=== PATIENT | female | born 1950 | race Caucasian/White ===

== ENCOUNTER 2016-07-21 11:54 | Inpatient (IN) | payer BC ==
[~2016-07-21] VITALS: Ht 162.6 cm; Wt 89.8 kg
[2016-07-21] MEDS ORDERED: IV NORMAL SALINE 1000ML BAG 1,000 ML IV SCH (12:12)
[2016-07-21] MEDS ORDERED: ONDANSETRON PF 4 MG/2 ML VIAL. IV ONE (12:15)
[2016-07-21] MEDS ORDERED: ASPIRIN ENTERIC COATED 325 MG TABLET.DR. PO ONE (12:15)
[2016-07-21] MEDS ORDERED: 0.9 % SODIUM CHLORIDE 10 ML DISP.SYRIN. IV PRN (12:15)
--- NOTE | 2016-07-21 12:26 | PHYS DOC ---
Past Medical History Past Medical History: Cancer, CVA, High Cholesterol, Hypertension, Stroke Additional Past Medical Histor: ADHD, paresthesias peripherally Past Surgical History: Cholecystectomy, Hysterectomy, Splenectomy, Other Additional Past Surgical Histo: HERNIAS Alcohol Use: None Adult General Chief Complaint Chief Complaint: NEAR SYNCOPE HPI HPI This is a pleasant 66-year-old female with history of hypertension, hyperlipidemia, prior CVA hemorrhagicum 2000 who presents with sudden onset of syncope. Patient has been evaluated by neurology in the past but comes today plus because she syncopized work. Patient had a prodrome of dizziness diaphoresis nausea prior to the event. She denied any headache chest pain prior to the event. She did have a crampy nauseous pain in the middle of her abdomen and abdominal pain without radiation to her back or flanks before the event became. Patient denies any fevers, chills, cough, runny nose, URI symptoms, lower leg pain, shortness of breath with the event. She does admit to having some tingling around perioral numbness as well as bilateral hands bilateral feet with no carpal pedal spasms. Patient has had events like this in the past this was a little more severe than she prior expense. She normally gets her care at another hospital facility since she new to us. Review of Systems Review of Systems Constitutional: Denies fever or chills planes of diaphoresis Eyes: Added she had tunnel vision without loss of vision she denies redness, or eye pain [] HENT: Denies nasal congestion or sore throat [] Respiratory: Denies cough or shortness of breath [] Cardiovascular: No additional information not addressed in HPI [] GI: He did complain of some abdominal pain nausea without vomiting or diarrhea. : Denies dysuria or hematuria [] Musculoskeletal: Denies back pain or joint pain [] Integument: Denies rash or skin lesions [] Neurologic: Denies headache, focal weakness or sensory changes [] Endocrine: Denies polyuria or polydipsia [] Current Medications Current Medications Current Medications Medications (Trade) Dose Ordered Sig/Leilani Start Time Stop Time Status Last Admin Dose Admin Aspirin (Ecotrin) 325 mg 1X ONCE 07/21/16 12:15 07/21/16 12:18 DC 07/21/16 12:32 325 MG Ondansetron HCl (Zofran) 4 mg 1X ONCE 07/21/16 12:15 07/21/16 12:18 DC 07/21/16 12:32 4 MG Sodium Chloride 1,000 ml @ 1,000 mls/hr Q1H 07/21/16 12:12 07/21/16 13:11 DC 07/21/16 12:32 1,000 MLS/HR Sodium Chloride (Normal Saline Flush) 10 ml QSHIFT PRN 07/21/16 12:15 Allergies Allergies Allergies Coded Allergies Type Severity Reaction Last Updated Verified cefaclor Allergy Intermediate hives 07/21/16 Yes Physical Exam Physical Exam Constitutional: Well developed, well nourished, uncomfortable but nontoxic patient is pale but nondiaphoretic HENT: Normocephalic, atraumatic, mucous membranes no carotid bruits no JVD noted no oral exudates, nose normal. [] Eyes: PERRLA, EOMI, conjunctiva normal, no discharge. [] Neck: Normal range of motion, no tenderness, supple, no stridor. [] Cardiovascular:Heart rate regular rhythm, no murmur [] Lungs & Thorax: Bilateral breath sounds clear to auscultation [] Abdomen: Bowel sounds normal, soft, no tenderness, no masses, no pulsatile masses no guarding rebound or organomegaly Skin: Warm, dry, no erythema, no rash. No diaphoresis skin warm capillary refill plus to +2 peripheral pulses at the radial and dorsalis pedis. His femoral pulse. Back: No tenderness, no CVA tenderness. [] Extremities: No tenderness, no cyanosis, no clubbing, ROM intact, no edema. [] Neurologic: Alert and oriented X 3, normal motor function, normal sensory function, no focal deficits noted. No change from baseline. Cranial nerves II through XII are intact Psychologic: Affect normal, judgement normal, mood normal. [] Current Patient Data Vital Signs Vital Signs Date Time Temp Pulse Resp B/P (MAP) Pulse Ox O2 Delivery O2 Flow Rate FiO2 07/21/16 13:24 70 147/60 (89) 92 Room Air 07/21/16 11:54 97.8 15 97.8 Lab Values Laboratory Tests Test 07/21/16 12:24 07/21/16 13:20 White Blood Count 7.6 x10^3/uL (4.0-11.0) Red Blood Count 4.06 x10^6/uL (3.50-5.40) Hemoglobin 12.5 g/dL (12.0-15.5) Hematocrit 35.5 % (36.0-47.0) L Mean Corpuscular Volume 88 fL (79-100) Mean Corpuscular Hemoglobin 31 pg (25-35) Mean Corpuscular Hemoglobin Concent 35 g/dL (31-37) Red Cell Distribution Width 13.9 % (11.5-14.5) Platelet Count 351 x10^3/uL (140-400) Neutrophils (%) (Auto) 69 % (31-73) Lymphocytes (%) (Auto) 21 % (24-48) L Monocytes (%) (Auto) 8 % (0-9) Eosinophils (%) (Auto) 1 % (0-3) Basophils (%) (Auto) 1 % (0-3) Neutrophils # (Auto) 5.2 x10^3uL (1.8-7.7) Lymphocytes # (Auto) 1.6 x10^3/uL (1.0-4.8) Monocytes # (Auto) 0.6 x10^3/uL (0.0-1.1) Eosinophils # (Auto) 0.1 x10^3/uL (0.0-0.7) Basophils # (Auto) 0.1 x10^3/uL (0.0-0.2) D-Dimer (Pat) 1.80 ug/mlFEU (0.00-0.50) H Sodium Level 141 mmol/L (136-145) Potassium Level 3.4 mmol/L (3.5-5.1) L Chloride Level 106 mmol/L (98-107) Carbon Dioxide Level 29 mmol/L (21-32) Anion Gap 6 (6-14) Blood Urea Nitrogen 12 mg/dL (7-20) Creatinine 0.7 mg/dL (0.6-1.0) Estimated GFR (Cockcroft-Gault) 83.2 BUN/Creatinine Ratio 17 (6-20) Glucose Level 127 mg/dL (70-99) H Calcium Level 8.3 mg/dL (8.5-10.1) L Magnesium Level 2.0 mg/dL (1.8-2.4) Total Bilirubin 0.4 mg/dL (0.2-1.0) Aspartate Amino Transferase (AST) 20 U/L (15-37) Alanine Aminotransferase (ALT) 18 U/L (14-59) Alkaline Phosphatase 55 U/L (46-116) Creatine Kinase 63 U/L (26-192) Creatine Kinase MB (Mass) < 0.5 ng/mL (0.0-3.6) Creatine Kinase MB Relative Index % (0-4) Troponin I Quantitative < 0.017 ng/mL (0.000-0.055) DG-Jti-J-Type Natriuretic Peptide 104 pg/mL (0-124) Total Protein 5.9 g/dL (6.4-8.2) L Albumin 2.8 g/dL (3.4-5.0) L Albumin/Globulin Ratio 0.9 (1.0-1.7) L Lipase 71 U/L (73-393) L Thyroid Stimulating Hormone (TSH) 1.813 uIU/mL (0.358-3.74) Urine Collection Type Unknown Urine Color Yellow Urine Clarity Clear Urine pH 7.0 Urine Specific [place] <=1.005 Urine Protein Negative mg/dL (NEG-TRACE) Urine Glucose (UA) Negative mg/dL (NEG) Urine Ketones (Stick) Negative mg/dL (NEG) Urine Blood Negative (NEG) Urine Nitrite Negative (NEG) Urine Bilirubin Negative (NEG) Urine Urobilinogen Dipstick 1.0 mg/dL (0.2 mg/dL) Urine Leukocyte Esterase Negative (NEG) Urine RBC 0 /HPF (0-2) Urine WBC 0 /HPF (0-4) Urine Bacteria 0 /HPF (0-FEW) Urine Hyaline Casts Moderate /HPF Urine Mucus Slight /LPF Laboratory Tests 07/21/16 12:24 Laboratory Tests 07/21/16 12:24 EKG EKG [] Radiology/Procedures Radiology/Procedures [] IMAGING REPORT Signed PATIENT: MARCIAL VALENCIA ACCOUNT: [id number] : 1950 LOCATION: ER AGE: 66 SEX: F EXAM STATUS: PRE ER ORD. PHYSICIAN: SHAUNA DASH MD REASON: syncope PROCEDURE: CT HEAD WO CONTRAST Exam performed: CT scan of the head without contrast. Date of Service: 07/21/14 Comparison: None available. Clinical History: Syncope. Technique: Helical acquisitions are obtained from the foramen magnum to the vertex without intravenous administration of contrast. Findings: The ventricles are midline without evidence of dilatation. Normal jacob-white differentiation is maintained. There is a small area of encephalomalacia in the left upper parietal lobe with a small calcification. There is no extra axial fluid collection, intraparenchymal hemorrhage or mass lesion. The visualized portions of the orbits, paranasal sinuses and the mastoid air cells appear clear. The calvarium is intact. Impression: 1. No acute intracranial process detected. 2. Small areas of fibrillation the left upper parietal region may be related to a chronic infarct or hemorrhage. If symptoms persist, evaluation with MRI with contrast may be of additional benefit. RS Compliance Statement: One or more of the following individualized dose reduction techniques were utilized for this examination: 1. Automated exposure control 2. Adjustment of the mA and/or kV according to patient size 3. Use of iterative reconstruction technique IMAGING REPORT Signed PATIENT: MARCIAL VALENCIA ACCOUNT: [id number] : 1950 LOCATION: ER AGE: 66 SEX: F EXAM STATUS: PRE ER ORD. PHYSICIAN: SHAUNA DASH MD REASON: syncope PROCEDURE: CHEST AP ONLY Exam performed: One view chest. Indication: syncope Date of Service: 07/21/2016 2:12 PM Comparison: None available. Single AP upright portable view chest findings: Cardiomediastinal silhouette is within limits of normal. No acute infiltrates, effusion or pneumothorax is detected. The bony structures are normal. Impression: No acute cardiopulmonary process is detected. DICTATED and SIGNED BY: LYNNE CHO MD DATE: 07/21/16 1241 CC: SHAUNA DASH MD ~ Course & Med Decision Making Course & Med Decision Making Pertinent Labs and Imaging studies reviewed. (See chart for details) IMAGING REPORT Signed PATIENT: MARCIAL VALENCIA ACCOUNT: [id number] : 1950 LOCATION: ER AGE: 66 SEX: F EXAM STATUS: PRE ER ORD. PHYSICIAN: SHAUNA DASH MD REASON: syncope PROCEDURE: CHEST AP ONLY Exam performed: One view chest. Indication: syncope Date of Service: 07/21/2016 2:12 PM Comparison: None available. Single AP upright portable view chest findings: Cardiomediastinal silhouette is within limits of normal. No acute infiltrates, effusion or pneumothorax is detected. The bony structures are normal. Impression: No acute cardiopulmonary process is detected. DICTATED and SIGNED BY: LYNNE CHO MD DATE: 07/21/16 1241 CC: SHAUNA DASH MD ~ Vitals per EMS demonstrated significant hypertension for rest of the emergency department recent vital signs at the time. Vital signs at this time are within normal limits blood pressure is 119/53 with a heart rate of 69. Patient's nursing notes reviewed by me laboratory work was reviewed by me as well as x- ray and CT scan reviewed actual images and reviewed radiology notes. Agree with findings \ As developed symptoms of near syncope with a history of hypertension hypercholesterolemia and prior stroke differential diagnosis includes Differntial diagnosis of syncope includes: cardiac syncope include arrhythmia, ischemia, structural/valvular abnormalities (eg, aortic stenosis, cardiac tamponade, and pacemaker malfunction , blood loss, pulmonary embolism, and subarachnoid hemorrhage. seizure, stroke, and head injury trauma, gastrointestinal bleeding, ruptured aortic aneurysm, ruptured ovarian cyst, ruptured ectopic , and ruptured spleen, Subarachnoid hemorrhage Neurocardiogenic syncope, Carotid sinus hypersensitivity, Orthostasis, Medications, subarachnoid hemorrhage, transient ischemic attack, subclavian steal syndrome, and complex migraine headache, seizure Discussed case with Dr. Contreras internal medicine who agrees with assessment and admission. Impression: Syncope possibly orthostasis secondary to hypotension versus cardiogenic. Disposition admission to telemetry with appropriate consultation by cardiology and neurology necessary. Dragon Disclaimer Dragon Disclaimer This electronic medical record was generated, in whole or in part, using a voice recognition dictation system. Departure Departure Impression: Primary Impression: Hypotension Additional Impressions: Syncope, near Nausea Disposition: 01 HOME, SELF-CARE Admitting Physician: Deacon Contreras Condition: IMPROVED Critical Care Time Critical care time was [] minutes exclusive of procedures. Problem Qualifiers SHAUNA DASH MD July 21, 2016 12:26
[2016-07-21 12:32] LABS: BASO # 0.1 x10^3/uL (0.0-0.2); BASO % 1 % (0-3); EOS % 1 % (0-3); HEMATOCRIT 35.5 % (36.0-47.0); HEMOGLOBIN 12.5 g/dL (12.0-15.5); LYMPH # 1.6 x10^3/uL (1.0-4.8); LYMPH % 21 % (24-48); MEAN CORPUSCULAR HEMOGLOBIN 31 pg (25-35); MEAN CORPUSCULAR HGB CONC 35 g/dL (31-37); MEAN CORPUSCULAR VOLUME 88 fL (79-100); MONO % 8 % (0-9); NEUT % 69 % (31-73); PLATELET COUNT 351 x10^3/uL (140-400); RED BLOOD COUNT 4.06 x10^6/uL (3.50-5.40); RED CELL DISTRIBUTION WIDTH 13.9 % (11.5-14.5); WHITE BLOOD COUNT 7.6 x10^3/uL (4.0-11.0)
[2016-07-21 12:45] LABS: CALCIUM 8.3 mg/dL (8.5-10.1); CREATININE 0.7 mg/dL (0.6-1.0); GFR 83.2; POTASSIUM 3.4 mmol/L (3.5-5.1)
--- NOTE | 2016-07-21 12:45 | RAD ---
Exam performed: One view chest. Indication: syncope Date of Service: 07/21/2016 2:12 PM Comparison: None available. Single AP upright portable view chest findings: Cardiomediastinal silhouette is within limits of normal. No acute infiltrates, effusion or pneumothorax is detected. The bony structures are normal. Impression: No acute cardiopulmonary process is detected.
--- NOTE | 2016-07-21 12:50 | RAD ---
Exam performed: CT scan of the head without contrast. Date of Service: 07/21/14 Comparison: None available. Clinical History: Syncope. Technique: Helical acquisitions are obtained from the foramen magnum to the vertex without intravenous administration of contrast. Findings: The ventricles are midline without evidence of dilatation. Normal jacob-white differentiation is maintained. There is a small area of encephalomalacia in the left upper parietal lobe with a small calcification. There is no extra axial fluid collection, intraparenchymal hemorrhage or mass lesion. The visualized portions of the orbits, paranasal sinuses and the mastoid air cells appear clear. The calvarium is intact. Impression: 1. No acute intracranial process detected. 2. Small areas of fibrillation the left upper parietal region may be related to a chronic infarct or hemorrhage. If symptoms persist, evaluation with MRI with contrast may be of additional benefit. PQRS Compliance Statement: One or more of the following individualized dose reduction techniques were utilized for this examination: 1. Automated exposure control 2. Adjustment of the mA and/or kV according to patient size 3. Use of iterative reconstruction technique
[2016-07-21 12:55] LABS: ALBUMIN 2.8 g/dL (3.4-5.0); ALBUMIN/GLOBULIN RATIO 0.9 (1.0-1.7); TOTAL BILIRUBIN 0.4 mg/dL (0.2-1.0); TOTAL PROTEIN 5.9 g/dL (6.4-8.2)
[2016-07-21 13:02] LABS: CKMB MASS < 0.5 ng/mL (0.0-3.6); CREATINE KINASE 63 U/L (26-192)
[2016-07-21 13:31] LABS: BILIRUBIN,URINE NEGATIVE (NEG); GLUCOSE,URINE NEGATIVE (NEG); NITRITE,URINE NEGATIVE (NEG); PROTEIN,URINE NEGATIVE (NEG-TRACE)
[2016-07-21 13:37] LABS: BACTERIA,URINE 0 /HPF (0-FEW); RBC,URINE 0 /HPF (0-2); WBC,URINE 0 /HPF (0-4)
--- NOTE | 2016-07-21 13:43 | EKG ---
[facility] [address] [place] [address] Test Date: 2016-07-21 Test Time: 11:59:53 Pat Name: MARCIAL VALENCIA Department: Room: Gender: Female Digital Performance Analyst: : 1950 Requested By: SHAUNA DASH Order Number: [id number] Reading MD: Vazquez Garvey Measurements Intervals [place] Rate: 60 P: 34 VA: 194 QRS: 22 QRSD: 82 T: 34 QT: 448 QTc: 453 Interpretive Statements SINUS RHYTHM Electronically Signed On 07-24-2016 9:37:10 CDT by Vazquez Garvey
[2016-07-21] MEDS ORDERED: ONDANSETRON PF 4 MG/2 ML VIAL. IV PRN (14:45)
[2016-07-21] MEDS ORDERED: MORPHINE SULFATE 2 MG/ML DISP.SYRIN. IV PRN (14:45)
--- NOTE | 2016-07-21 15:38 | PDOC2 ---
JUAN CINTRON FLOOR POLISHER 07/21/16 1538: CARDIAC CONSULT DATE OF CONSULT Date of Consult DATE: 07/21/16 TIME: 15:30 REASON FOR CONSULT Reason for Consult: syncope REFERRING PHYSICIAN Referring Physician: Marques SOURCE Source: Chart review, Patient HISTORY OF PRESENT ILLNESS HISTORY OF PRESENT ILLNESS This is a pleasant 66 yo female admitted for complains of dizziness. Reports she was at [facility] and standing up when she started feeling abdominal cramps. She does have IBS and went to the bathroom 3 times and after the third time and while in the bathroom she felt diaphoretic, slight tingles to her lips but more to her hands and feet, felt dizzy. This is all while she was sitting on the toilet. She did not passed out. There was no tinnitus or vertigo. She passed out and actually hit her head in the pavement on 2016 and was told by her neurologist that this was neurogenic. She had about the same symptoms as what it was at that time. Denies any chest pain, palpitations, SOA. Denies any BURNS, fatigue. She has some weakness to her right arm and leg and chronic neuropathy to her RLE since having hemorrhagic stroke in 2000. Denies any cardiac history or any arrhythmia. She does take low dose lasix for her chronic leg edema and verbalized that she is well hydrated today. She did have hx of HTN but her BP has been good since she lost about 62 pounds. Denies any hx of seizures and no recent injury since her syncope last yr. No recent infection, no VTE, CAD in the past. 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) FAMILY HISTORY Family History noncontributory to CV SOCIAL HISTORY Smoke: No ALCOHOL: occassional Drugs: None Lives: with Family CURRENT MEDICATIONS CURRENT MEDICATIONS Current Medications Medications (Trade) Dose Ordered Sig/Leilani Route PRN Reason Start Time Stop Time Status Last Admin Dose Admin Sodium Chloride 1,000 ml @ 1,000 mls/hr Q1H IV 07/21/16 12:12 07/21/16 13:11 DC 07/21/16 12:32 Aspirin (Ecotrin) 325 mg 1X ONCE PO 07/21/16 12:15 07/21/16 12:18 DC 07/21/16 12:32 Ondansetron HCl (Zofran) 4 mg 1X ONCE IV 07/21/16 12:15 07/21/16 12:18 DC 07/21/16 12:32 ALLERGIES ALLERGIES: Coded Allergies: lamotrigine (Verified Allergy, Severe, 07/21/16) cefaclor (Verified Allergy, Intermediate, hives, 07/21/16) ROS Review of System 14 point ROS evaluated with pertinent positives noted per HPI PHYSICAL EXAM General: Alert, Oriented X3, Cooperative, No acute distress HEENT: Atraumatic, Mucous membr. moist/pink Heart: Regular rate (SR), Normal S1, Normal S2, Other (PEDRITO 3/6 systolic murmuer ) Extremities: No cyanosis, Other (2+ bilateral LE pitting edema) Skin: No breakdown, No significant lesion Neuro: Normal speech, Sensation intact Psych/Mental Status: Mental status NL, Mood NL MUSCULOSKELETAL: Osteoarthritic changes both hands VITALS VITALS Vital Signs Date Time Temp Pulse Resp B/P (MAP) Pulse Ox O2 Delivery O2 Flow Rate FiO2 07/21/16 13:24 70 147/60 (89) 92 Room Air 07/21/16 11:54 97.8 15 97.8 LABS Lab: Laboratory Tests Test 07/21/16 12:24 07/21/16 13:20 White Blood Count 7.6 x10^3/uL (4.0-11.0) Red Blood Count 4.06 x10^6/uL (3.50-5.40) Hemoglobin 12.5 g/dL (12.0-15.5) Hematocrit 35.5 % (36.0-47.0) Mean Corpuscular Volume 88 fL (79-100) Mean Corpuscular Hemoglobin 31 pg (25-35) Mean Corpuscular Hemoglobin Concent 35 g/dL (31-37) Red Cell Distribution Width 13.9 % (11.5-14.5) Platelet Count 351 x10^3/uL (140-400) Neutrophils (%) (Auto) 69 % (31-73) Lymphocytes (%) (Auto) 21 % (24-48) Monocytes (%) (Auto) 8 % (0-9) Eosinophils (%) (Auto) 1 % (0-3) Basophils (%) (Auto) 1 % (0-3) Neutrophils # (Auto) 5.2 x10^3uL (1.8-7.7) Lymphocytes # (Auto) 1.6 x10^3/uL (1.0-4.8) Monocytes # (Auto) 0.6 x10^3/uL (0.0-1.1) Eosinophils # (Auto) 0.1 x10^3/uL (0.0-0.7) Basophils # (Auto) 0.1 x10^3/uL (0.0-0.2) D-Dimer (Pat) 1.80 ug/mlFEU (0.00-0.50) Sodium Level 141 mmol/L (136-145) Potassium Level 3.4 mmol/L (3.5-5.1) Chloride Level 106 mmol/L (98-107) Carbon Dioxide Level 29 mmol/L (21-32) Anion Gap 6 (6-14) Blood Urea Nitrogen 12 mg/dL (7-20) Creatinine 0.7 mg/dL (0.6-1.0) Estimated GFR (Cockcroft-Gault) 83.2 BUN/Creatinine Ratio 17 (6-20) Glucose Level 127 mg/dL (70-99) Calcium Level 8.3 mg/dL (8.5-10.1) Magnesium Level 2.0 mg/dL (1.8-2.4) Total Bilirubin 0.4 mg/dL (0.2-1.0) Aspartate Amino Transf (AST/SGOT) 20 U/L (15-37) Alanine Aminotransferase (ALT/SGPT) 18 U/L (14-59) Alkaline Phosphatase 55 U/L (46-116) Creatine Kinase 63 U/L (26-192) Creatine Kinase MB (Mass) < 0.5 ng/mL (0.0-3.6) Creatine Kinase MB Relative Index % (0-4) Troponin I Quantitative < 0.017 ng/mL (0.000-0.055) EV-Nrj-H-Type Natriuretic Peptide 104 pg/mL (0-124) Total Protein 5.9 g/dL (6.4-8.2) Albumin 2.8 g/dL (3.4-5.0) Albumin/Globulin Ratio 0.9 (1.0-1.7) Lipase 71 U/L (73-393) Thyroid Stimulating Hormone (TSH) 1.813 uIU/mL (0.358-3.74) Urine Collection Type Unknown Urine Color Yellow Urine Clarity Clear Urine pH 7.0 Urine Specific [place] <=1.005 Urine Protein Negative mg/dL (NEG-TRACE) Urine Glucose (UA) Negative mg/dL (NEG) Urine Ketones (Stick) Negative mg/dL (NEG) Urine Blood Negative (NEG) Urine Nitrite Negative (NEG) Urine Bilirubin Negative (NEG) Urine Urobilinogen Dipstick 1.0 mg/dL (0.2 mg/dL) Urine Leukocyte Esterase Negative (NEG) Urine RBC 0 /HPF (0-2) Urine WBC 0 /HPF (0-4) Urine Bacteria 0 /HPF (0-FEW) Urine Hyaline Casts Moderate /HPF Urine Mucus Slight /LPF ASSESSMENT/PLAN ASSESSMENT/PLAN 1. Presyncope: suspect vasovagal, likely situational with IBS. CT head with no acute changes. 2. Hx of neurogenic syncope: last event 03/10/2016. No prior event monitor. Closely sees neurologist, next appt with Dr. Solis on next week 3. 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 Anxiety/depression/ADD: on ritalin as well 5. HTN: no medications and controlled since weight loss 6. Chronic KITCHEN 7. Elevated DDIMER: low probability PE per calculation. Defer to PCP 8. Peripheral venous insufficiency 9. HLP Recommendations 1. TTE 2. Monitor rhythm overnight 3. Replace K. 4. Consult neurology 5. Too much artifact on EKG. Will repeat 6. TSH, lipid panel 7. Orthostatic BP Problems: ARCHANA LOVE MD 07/22/16 0846: CARDIAC CONSULT ALLERGIES ALLERGIES: Coded Allergies: lamotrigine (Verified Allergy, Severe, 07/21/16) cefaclor (Verified Allergy, Intermediate, hives, 07/21/16) ASSESSMENT/PLAN ASSESSMENT/PLAN Late entry for 07/21/2016. Patient seen and examined. Agree with above nurse partition are noted. 66-year-old woman presenting with lightheadedness in the setting of gastrointestinal issues. Denies any chest pain, orthopnea, PND. Had one episode of syncope in February 2016. Etiology is unclear. No prior follow-up. Her echocardiogram is normal. She has normal cardiac exam. Lower extremity DVT scan is negative. She has very rare symptoms that even a event monitor would not be able to capture her symptomatology but it would not be unreasonable to consider outpatient event monitoring to rule out any significant arrhythmias. We'll arrange this from our office and follow up with her approximate 6 weeks. No further inpatient cardiac vascular testing. Thank you for this consultation. Further evaluation per neurology. Problems: JUAN CINTRON APRN July 21, 2016 15:38 ARCHANA LOVE MD July 22, 2016 08:46
[2016-07-21] MEDS ORDERED: POTASSIUM CHLORIDE 20 MEQ TABLET.ER. PO ONE (15:45)
--- NOTE | 2016-07-21 16:28 | EKG ---
[facility] [address] [place] [address] Test Date: 2016-07-21 Test Time: 16:19:24 Pat Name: MARCIAL VALENCIA Department: Room: 200 1 Gender: F Account Executive Software Sales: RAJI : 1950 Requested By: JUAN CINTRON Order Number: [id number] Reading MD: Vazquez Garvey Measurements Intervals [place] Rate: 79 P: 9 [place]: 192 QRS: 31 QRSD: 76 T: 39 QT: 398 QTc: 457 Interpretive Statements SINUS RHYTHM LOW LIMB LEAD VOLTAGE Electronically Signed On 07-22-2016 10:21:52 CDT by Vazquez Garvey
[2016-07-21 16:40] VITALS: BP 146/77
--- NOTE | 2016-07-21 16:40 | CARD ---
APPROVED REPORT EXAM: Two-dimensional and M-mode echocardiogram with Doppler and color Doppler. Other Information Quality : GoodHR: 83bpm Rhythm : NSR INDICATION Syncope 2D DIMENSIONS RVDd3.2 (2.9-3.5cm)Left Atrium(2D)3.5 (1.6-4.0cm) IVSd0.7 (0.7-1.1cm)Aortic Root(2D)3.0 (2.0-3.7cm) LVDd5.0 (3.9-5.9cm)LVOT Diameter2.2 (1.8-2.4cm) PWd0.8 (0.7-1.1cm)LVDs3.2 (2.5-4.0cm) FS (%) 35.3 %SV74.6 ml LVEF(%)64.5 (>50%) Aortic Valve AoV Peak Danny.139.9cm/sAoV VTI30.2cm AO Peak GR.7.8mmHgLVOT Peak Danny.128.6cm/s AO Mean GR.5mmHgAVA (VMAX)3.60cm2 Mitral Valve MV E Nmedkgqi04.3cm/sMV E Peak Gr.7mmHg MV DECEL [id number] A Kjuiphqg438.1cm/s MV E Mean Gr.2mmHgE/A Ratio0.7 MV A [id number] Pulmonary Valve PV Peak Nzdqufwq165.3cm/s Pulmonary Vein S1 Wuymoleg96.6cm/sD2 Tgsydepr45.2cm/s PVa [id number] LEFT VENTRICLE The left ventricle is normal size. There is normal left ventricular wall thickness. The left ventricu lar systolic function is normal and the ejection fraction is within normal range. The Ejection Fracti on is 65-70%. There is normal LV segmental wall motion. Transmitral Doppler flow pattern is Grade I-a bnormal relaxation pattern. RIGHT VENTRICLE The right ventricle is normal size. There is normal right ventricular wall thickness. The right ventr icular systolic function is normal. ATRIA The left atrium size is normal. The right atrium size is normal. The interatrial septum is intact wit h no evidence for an atrial septal defect or patent foramen ovale as noted on 2-D or Doppler imaging. AORTIC VALVE The aortic valve is mildly sclerotic. The aortic valve is trileaflet. Doppler and Color Flow revealed no significant aortic regurgitation. There is no significant aortic valvular stenosis. MITRAL VALVE The mitral valve leaflets are thickened. There is no evidence of mitral valve prolapse. There is no m itral valve stenosis. Doppler and Color Flow revealed trace mitral regurgitation. TRICUSPID VALVE Doppler and Color Flow revealed trace tricuspid regurgitation. Unable to determine pulmonary artery p ressure at exam time. PULMONIC VALVE The pulmonic valve is not well visualized. Doppler and Color Flow revealed no pulmonic valvular regur gitation. There is no pulmonic valvular stenosis. GREAT VESSELS The aortic root is normal in size. The ascending aorta is normal in size. The IVC is normal in size a nd collapses >50% with inspiration. PERICARDIAL EFFUSION There is no evidence of significant pericardial effusion. Critical Notification Critical Value: No <Conclusion> The left ventricular systolic function is normal and the ejection fraction is within normal range. Th e Ejection Fraction is 65-70%. There is normal LV segmental wall motion.
[2016-07-21 16:45] VITALS: BP 136/76
[2016-07-21 16:50] VITALS: BP 141/68
[2016-07-21 17:07] VITALS: BP 146/77
[2016-07-21] MEDS ORDERED: IOHEXOL 300 MG/ML 75 ML VIAL IV ONE (17:30)
[2016-07-21] MEDS ORDERED: CONTRAST GIVEN MC PRN (17:30)
[2016-07-21] MEDS ORDERED: OMEP20CA9 PO (18:22)
[2016-07-21] MEDS ORDERED: FURO20TA3 PO (18:22)
[2016-07-21] MEDS ORDERED: NORT75CA PO (18:24)
[2016-07-21] MEDS ORDERED: VENL37.56 PO (18:24)
[2016-07-21] MEDS ORDERED: METH40CP PO (18:24)
[2016-07-21] MEDS ORDERED: SIMV40TA3 PO (18:25)
--- NOTE | 2016-07-21 18:48 | RAD ---
CT angiogram of the chest with contrast Indication: Shortness of air. Axial imaging through the chest was performed after the administration of intravenous contrast and utilizing the CT angiography protocol. Multiplanar, 3D and mip reformations were also performed. PQRS STATEMENT One or more of the following individualized dose reduction techniques were utilized for this study: 1.Automated exposure control. 2.Adjustment of the mA and/orkVaccording to patient size. 3.Use of iterative reconstruction technique. No filling defects are identified in the pulmonary arterial system to suggest thromboembolism. The thoracic aorta is normal caliber. No dissection is seen. No pericardial or pleural fluid is identified. There is subsegmental atelectasis in the right middle lobe, lingula and right lower lobe. The upper abdomen is unremarkable. Note is made of a low-density mass left lobe of the thyroid gland. Impression: No evidence of pulmonary embolism or thoracic aortic dissection. Left thyroid lobe enlargement with low-density mass. Thyroid ultrasound on a nonemergent basis is recommended for further evaluation, if not already performed. Electronically signed by: Evens Becker MD (July 21, 2016 18:46:43)
[2016-07-21 19:00] VITALS: BP 141/66
[2016-07-21] MEDS ORDERED: diphenhydrAMINE HCL 25 MG CAPSULE PO PRN (20:45)
[2016-07-21] MEDS ORDERED: SIMVASTATIN 40 MG TABLET. PO SCH (21:00)
[2016-07-21] MEDS ORDERED: NORTRIPTYLINE 25 MG CAPSULE PO SCH (21:00)
[2016-07-21] MEDS ORDERED: VENLAFAXINE 75 MG TABLET. PO SCH (21:00)
[2016-07-21 23:00] VITALS: BP 139/61
[2016-07-21] MEDS: OXYMETAZOLINE 0.05% NASAL SPRAY 30ML BOTTLE. NS SCH (23:18)
--- NOTE | 2016-07-22 00:09 | HP ---
ADMIT DATE: 07/21/2016 CHIEF COMPLAINT: Syncope. HISTORY OF PRESENT ILLNESS: The patient is a pleasant elderly female who presents with syncopal episode. She was at ____ and called the EMS and they brought her here. We were concerned she could be having arrhythmias. We are going to admit the patient and consult Cardiology. PAST MEDICAL HISTORY: Previous syncopal episodes and she also had an old stroke. ALLERGIES: None. FAMILY HISTORY: Hypertension. SOCIAL HISTORY: She does not drink, smoke or take drugs. MEDICATIONS: Reviewed, please refer to the MRAD. REVIEW OF SYSTEMS: GENERAL: No history of weight change, weakness or fevers. SKIN: No bruising, hair changes or rashes. EYES: No blurred, double or loss of vision. NOSE AND THROAT: No history of nosebleeds, hoarseness or sore throat. HEART: No history of palpitations, chest pain or shortness of breath on exertion. LUNGS: Denies cough, hemoptysis, wheezing or shortness of breath. GASTROINTESTINAL: Denies changes in appetite, nausea, vomiting, diarrhea or constipation. GENITOURINARY: No history of frequency, urgency, hesitancy or nocturia. NEUROLOGIC: Denies history of numbness, tingling, tremor or weakness. PSYCHIATRIC: No history of panic, anxiety or depression. ENDOCRINE: No history of heat or cold intolerance, polyuria or polydipsia. EXTREMITIES: Denies muscle weakness, joint pain, pain on walking or stiffness. PHYSICAL EXAMINATION: VITAL SIGNS: Temperature afebrile, pulse 80, respirations 19, blood pressure 133/68. GENERAL: She is alert, cooperative. HEART: Normal S1, S2. LUNGS: Clear. ABDOMEN: Soft, positive bowel sounds. EXTREMITIES: No edema. SKIN: No rashes. PSYCHIATRIC: She is stable. VASCULAR: Good capillary refill. ENDOCRINE: No thyromegaly. LYMPHATICS: No cervical nodes. HEMATOPOIETIC: No bruising. ASSESSMENT AND PLAN: Syncope. The patient is being admitted. We will consult Cardiology, serial enzymes, serial EKGs, echocardiogram, cardiac monitoring, daily aspirin and home meds. TYREE VELASQUEZ DO DR: GAURANG/derrell JOB#: [id number] / [id number]
[2016-07-22 03:00] VITALS: BP 144/62
[2016-07-22 04:17] LABS: CHOLESTEROL/HDL RATIO 3.4
[2016-07-22 07:00] VITALS: BP 152/72
[2016-07-22 07:05] VITALS: BP_SYST 134; BP_SYST 164; BP_DIAS 86; BP_DIAS 89
[2016-07-22 07:06] VITALS: BP_SYST 116; BP_SYST 156; BP_DIAS 72; BP_DIAS 74
[2016-07-22] MEDS ORDERED: PANTOPRAZOLE 40 MG TABLET.DR. PO SCH (07:30)
--- NOTE | 2016-07-22 08:42 | RAD ---
APPROVED REPORT Bilateral Lower Extremity Venous Study for DVT Patient Location: IN-PATIENT Indications Lower Extremity Edema: Bilateral Findings Mast scale images of the bilateral lower extremities were obtained. The left and right common femoral , superficial femoral, profunda femoral and popliteal veins appear to be compressible. Spectral wavef orms and color Doppler did not reveal any obstruction to flow. Below-knee veins reveal spontaneous flow. The bilateral greater saphenous veins at the saphenofemoral junctions do not demonstrate any evidence of thrombus. Critical Notification Critical Value: No <Conclusion> Negative for DVT in the bilateral lower extremities.
[2016-07-22] MEDS ORDERED: IV NORMAL SALINE 500ML BAG 500 ML IV ONE (08:45)
--- NOTE | 2016-07-22 08:48 | PDOC ---
DIPESH CUELLO [employer] OPERATOR 07/22/16 0848: CARDIO Progress Notes Date and Time Date of Service 07/22/2016 Time of Evaluation 0842 Subjective Subjective: No Chest Pain, No shortness of breath, No Palpitations, No Dizziness Comments: denies diarrhea Vitals Vitals Vital Signs Date Time Temp Pulse Resp B/P (MAP) Pulse Ox O2 Delivery O2 Flow Rate FiO2 07/22/16 07:00 97.9 83 16 152/72 (98) 94 Room Air 97.9 Weight Weight [ ] Input and Output Intake and Output Intake and Output 07/22/16 07:00 Intake Total 800 ml Output Total 400 ml Balance 400 ml Intake Oral 800 ml Output Urine Total 400 ml # Voids 4 Laboratory Labs Laboratory Tests Test 07/21/16 12:24 07/21/16 13:20 07/21/16 20:45 07/22/16 03:00 White Blood Count 7.6 x10^3/uL (4.0-11.0) Red Blood Count 4.06 x10^6/uL (3.50-5.40) Hemoglobin 12.5 g/dL (12.0-15.5) Hematocrit 35.5 % (36.0-47.0) Mean Corpuscular Volume 88 fL (79-100) Mean Corpuscular Hemoglobin 31 pg (25-35) Mean Corpuscular Hemoglobin Concent 35 g/dL (31-37) Red Cell Distribution Width 13.9 % (11.5-14.5) Platelet Count 351 x10^3/uL (140-400) Neutrophils (%) (Auto) 69 % (31-73) Lymphocytes (%) (Auto) 21 % (24-48) Monocytes (%) (Auto) 8 % (0-9) Eosinophils (%) (Auto) 1 % (0-3) Basophils (%) (Auto) 1 % (0-3) Neutrophils # (Auto) 5.2 x10^3uL (1.8-7.7) Lymphocytes # (Auto) 1.6 x10^3/uL (1.0-4.8) Monocytes # (Auto) 0.6 x10^3/uL (0.0-1.1) Eosinophils # (Auto) 0.1 x10^3/uL (0.0-0.7) Basophils # (Auto) 0.1 x10^3/uL (0.0-0.2) D-Dimer (Pat) 1.80 ug/mlFEU (0.00-0.50) Sodium Level 141 mmol/L (136-145) Potassium Level 3.4 mmol/L (3.5-5.1) Chloride Level 106 mmol/L (98-107) Carbon Dioxide Level 29 mmol/L (21-32) Anion Gap 6 (6-14) Blood Urea Nitrogen 12 mg/dL (7-20) Creatinine 0.7 mg/dL (0.6-1.0) Estimated GFR (Cockcroft-Gault) 83.2 BUN/Creatinine Ratio 17 (6-20) Glucose Level 127 mg/dL (70-99) Calcium Level 8.3 mg/dL (8.5-10.1) Magnesium Level 2.0 mg/dL (1.8-2.4) Total Bilirubin 0.4 mg/dL (0.2-1.0) Aspartate Amino Transf (AST/SGOT) 20 U/L (15-37) Alanine Aminotransferase (ALT/SGPT) 18 U/L (14-59) Alkaline Phosphatase 55 U/L (46-116) Creatine Kinase 63 U/L (26-192) Creatine Kinase MB (Mass) < 0.5 ng/mL (0.0-3.6) Creatine Kinase MB Relative Index % (0-4) Troponin I Quantitative < 0.017 ng/mL (0.000-0.055) < 0.017 ng/mL (0.000-0.055) < 0.017 ng/mL (0.000-0.055) UO-Atb-E-Type Natriuretic Peptide 104 pg/mL (0-124) Total Protein 5.9 g/dL (6.4-8.2) Albumin 2.8 g/dL (3.4-5.0) Albumin/Globulin Ratio 0.9 (1.0-1.7) Lipase 71 U/L (73-393) Thyroid Stimulating Hormone (TSH) 1.813 uIU/mL (0.358-3.74) Urine Collection Type Unknown Urine Color Yellow Urine Clarity Clear Urine pH 7.0 Urine Specific [place] <=1.005 Urine Protein Negative mg/dL (NEG-TRACE) Urine Glucose (UA) Negative mg/dL (NEG) Urine Ketones (Stick) Negative mg/dL (NEG) Urine Blood Negative (NEG) Urine Nitrite Negative (NEG) Urine Bilirubin Negative (NEG) Urine Urobilinogen Dipstick 1.0 mg/dL (0.2 mg/dL) Urine Leukocyte Esterase Negative (NEG) Urine RBC 0 /HPF (0-2) Urine WBC 0 /HPF (0-4) Urine Bacteria 0 /HPF (0-FEW) Urine Hyaline Casts Moderate /HPF Urine Mucus Slight /LPF Triglycerides Level 72 mg/dL (0-150) Cholesterol Level 158 mg/dL (0-200) LDL Cholesterol, Calculated 97 mg/dL (0-100) VLDL Cholesterol, Calculated 14 mg/dL (0-40) Non-HDL Cholesterol Calculated 111 mg/dL (0-129) HDL Cholesterol 47 mg/dL (40-60) Cholesterol/HDL Ratio 3.4 Physical Exam HEENT: Neck Supple W Full Motion Chest: Symmetric LUNGS: Clear to Auscultation Heart: S1S2, RRR, no murmurs, no jug vein distention, other (tele: SR) Abdomen: Soft N/T Extremities: No Edema Neurology: alert, oriented, follow commands Assessment Assessment 1. Presyncope not orthostatic no evidence of dysrhythmias on telemetry - consider event monitor @ discharge hx of neurogenic syncope - neurology consult pending 2. Elevated DDIMER CTa negative for pulmonary embolus 3. HTN control with ARCHANA Lazcano MD 07/22/16 1022: CARDIO Progress Notes Plan Plan Pt. seen and examined. Agree with above SERVICE TECH note. No acute events overnight. Denies any cp/dyspnea/palpitations. Normal cardiac exam normal ct/lower ext dopplers Neuro eval performed. negative orthostatics no further cv recs. thanks for consult. pls call with questions. DIPESH CUELLO APRN July 22, 2016 08:48 ARCHANA LOVE MD July 22, 2016 10:22
[2016-07-22] MEDS: OXYMETAZOLINE 0.05% NASAL SPRAY 30ML BOTTLE. NS SCH (08:50)
[2016-07-22] MEDS ORDERED: METHYLPHENIDATE HCL 5 MG TABLET PO SCH (09:00)
[2016-07-22] MEDS ORDERED: FUROSEMIDE 20 MG TABLET PO SCH (09:00)
--- NOTE | 2016-07-22 10:51 | PDOC ---
PROGRESS NOTES Chief Complaint Chief Complaint Presyncope ASSESSMENT AND PLAN: 1. Presyncope: appreciate Dr Garvey's input; no arrhythmia or orthostasis noted, echo WNL. pt has hx of neurogenic syncope - neurology consult pending 2. HTN: well controlled on home meds 3. Elevated DDimer: US LE and CTA neg for DVT/PE 4. Dispo: prob home if cleared by neuro History of Present Illness History of Present Illness no dizziness, KITCHEN, CP, SOB Vitals Vitals Vital Signs Date Time Temp Pulse Resp B/P (MAP) Pulse Ox O2 Delivery O2 Flow Rate FiO2 07/22/16 08:00 Room Air 07/22/16 07:06 85 19 156/74 (101) 07/22/16 07:05 96 07/22/16 07:00 97.9 97.9 Physical Exam General: Alert, Oriented X3, Cooperative, No acute distress Heart: Regular rate (SR), Normal S1, Normal S2, Other (PEDRITO 3/6 systolic murmuer ) Extremities: No cyanosis, Other (2+ bilateral LE pitting edema) Skin: No breakdown, No significant lesion Labs LABS Laboratory Tests Test 07/21/16 12:24 07/21/16 13:20 07/21/16 20:45 07/22/16 03:00 White Blood Count 7.6 x10^3/uL (4.0-11.0) Red Blood Count 4.06 x10^6/uL (3.50-5.40) Hemoglobin 12.5 g/dL (12.0-15.5) Hematocrit 35.5 % (36.0-47.0) Mean Corpuscular Volume 88 fL (79-100) Mean Corpuscular Hemoglobin 31 pg (25-35) Mean Corpuscular Hemoglobin Concent 35 g/dL (31-37) Red Cell Distribution Width 13.9 % (11.5-14.5) Platelet Count 351 x10^3/uL (140-400) Neutrophils (%) (Auto) 69 % (31-73) Lymphocytes (%) (Auto) 21 % (24-48) Monocytes (%) (Auto) 8 % (0-9) Eosinophils (%) (Auto) 1 % (0-3) Basophils (%) (Auto) 1 % (0-3) Neutrophils # (Auto) 5.2 x10^3uL (1.8-7.7) Lymphocytes # (Auto) 1.6 x10^3/uL (1.0-4.8) Monocytes # (Auto) 0.6 x10^3/uL (0.0-1.1) Eosinophils # (Auto) 0.1 x10^3/uL (0.0-0.7) Basophils # (Auto) 0.1 x10^3/uL (0.0-0.2) D-Dimer (Pat) 1.80 ug/mlFEU (0.00-0.50) Sodium Level 141 mmol/L (136-145) Potassium Level 3.4 mmol/L (3.5-5.1) Chloride Level 106 mmol/L (98-107) Carbon Dioxide Level 29 mmol/L (21-32) Anion Gap 6 (6-14) Blood Urea Nitrogen 12 mg/dL (7-20) Creatinine 0.7 mg/dL (0.6-1.0) Estimated GFR (Cockcroft-Gault) 83.2 BUN/Creatinine Ratio 17 (6-20) Glucose Level 127 mg/dL (70-99) Calcium Level 8.3 mg/dL (8.5-10.1) Magnesium Level 2.0 mg/dL (1.8-2.4) Total Bilirubin 0.4 mg/dL (0.2-1.0) Aspartate Amino Transf (AST/SGOT) 20 U/L (15-37) Alanine Aminotransferase (ALT/SGPT) 18 U/L (14-59) Alkaline Phosphatase 55 U/L (46-116) Creatine Kinase 63 U/L (26-192) Creatine Kinase MB (Mass) < 0.5 ng/mL (0.0-3.6) Creatine Kinase MB Relative Index % (0-4) Troponin I Quantitative < 0.017 ng/mL (0.000-0.055) < 0.017 ng/mL (0.000-0.055) < 0.017 ng/mL (0.000-0.055) ZE-Nec-Z-Type Natriuretic Peptide 104 pg/mL (0-124) Total Protein 5.9 g/dL (6.4-8.2) Albumin 2.8 g/dL (3.4-5.0) Albumin/Globulin Ratio 0.9 (1.0-1.7) Lipase 71 U/L (73-393) Thyroid Stimulating Hormone (TSH) 1.813 uIU/mL (0.358-3.74) Urine Collection Type Unknown Urine Color Yellow Urine Clarity Clear Urine pH 7.0 Urine Specific [place] <=1.005 Urine Protein Negative mg/dL (NEG-TRACE) Urine Glucose (UA) Negative mg/dL (NEG) Urine Ketones (Stick) Negative mg/dL (NEG) Urine Blood Negative (NEG) Urine Nitrite Negative (NEG) Urine Bilirubin Negative (NEG) Urine Urobilinogen Dipstick 1.0 mg/dL (0.2 mg/dL) Urine Leukocyte Esterase Negative (NEG) Urine RBC 0 /HPF (0-2) Urine WBC 0 /HPF (0-4) Urine Bacteria 0 /HPF (0-FEW) Urine Hyaline Casts Moderate /HPF Urine Mucus Slight /LPF Triglycerides Level 72 mg/dL (0-150) Cholesterol Level 158 mg/dL (0-200) LDL Cholesterol, Calculated 97 mg/dL (0-100) VLDL Cholesterol, Calculated 14 mg/dL (0-40) Non-HDL Cholesterol Calculated 111 mg/dL (0-129) HDL Cholesterol 47 mg/dL (40-60) Cholesterol/HDL Ratio 3.4 MASOOD REILLY MD July 22, 2016 10:51
--- NOTE | 2016-07-22 12:29 | PDOC2 ---
NEUROLOGY CONSULT Date of Admission Date of Admission Full Report Dictated DATE: 07/22/16 TIME: 12:27 Current Medications Current Medications Current Medications Sodium Chloride (Normal Saline Flush) 10 ml QSHIFT PRN IV AFTER MEDS AND BLOOD DRAWS; Start 07/21/16 at 12:15 Sodium Chloride 1,000 ml @ 1,000 mls/hr Q1H IV Last administered on 07/21/16 12:32; Start 07/21/16 at 12:12; Stop 07/21/16 at 13:11; Status DC Aspirin (Ecotrin) 325 mg 1X ONCE PO Last administered on 07/21/16 12:32; Start 07/21/16 at 12:15; Stop 07/21/16 at 12:18; Status DC Ondansetron HCl (Zofran) 4 mg 1X ONCE IV Last administered on 07/21/16 12:32 ; Start 07/21/16 at 12:15; Stop 07/21/16 at 12:18; Status DC Ondansetron HCl (Zofran) 4 mg PRN Q8HRS PRN IV NAUSEA/VOMITING; Start 07/21/16 at 14:45; Stop 07/22/16 at 14:44 Morphine Sulfate 2 mg PRN Q2HR PRN IV PAIN; Start 07/21/16 at 14:45; Stop 07/22 at 14:44 Potassium Chloride (Klor-Con) 40 meq 1X ONCE PO Last administered on 18:50; Start 07/21/16 at 15:45; Stop 07/21/16 at 15:46; Status DC Iohexol (Omnipaque 300 Mg/ml) 75 ml 1X ONCE IV ; Start 07/21/16 at 17:30; Stop 07/21/16 at 17:31; Status DC Info (Do NOT chart on this entry -- for MONITORING) 1 each PRN DAILY PRN MC SEE COMMENTS; Start 07/21/16 at 17:30; Stop 07/23/16 at 17:29 Furosemide (Lasix) 20 mg DAILY PO Last administered on 07/22/16 08:49; Start 07/22/16 at 09:00 Simvastatin (Zocor) 40 mg QHS PO Last administered on 07/21/16 21:49; Start at 21:00 Methylphenidate HCl (Ritalin) 40 mg DAILY PO Last administered on 07/22/16 08: 54; Start 07/22/16 at 09:00 Nortriptyline HCl (Pamelor) 75 mg QHS PO Last administered on 07/21/16 21:48; Start 07/21/16 at 21:00 Pantoprazole Sodium (Protonix) 40 mg DAILYAC PO Last administered on 07/22/16 08:49; Start 07/22/16 at 07:30 Venlafaxine HCl (Effexor) 112.5 mg QHS PO Last administered on 07/21/16 21:48 ; Start 07/21/16 at 21:00; Stop 07/22/16 at 08:15; Status DC Oxymetazoline HCl (Afrin) 2 spray BID NS Last administered on 07/22/16 08:50; Start 07/21/16 at 21:00 Diphenhydramine HCl (Benadryl) 50 mg PRN Q6HRS PRN PO ITCHING; Start 07/21/16 at 20:45 Venlafaxine HCl (Effexor Xr) 112.5 mg QHS PO ; Start 07/22/16 at 21:00 Sodium Chloride 500 ml @ 500 mls/hr 1X ONCE IV ; Start 07/22/16 at 08:45; Stop 07/22/16 at 08:47; Status DC Active Scripts Active Reported Simvastatin 40 Mg Tablet 1 Tab PO QHS Nortriptyline Hcl 75 Mg Capsule 75 Mg PO HS Venlafaxine Hcl 37.5 Mg Tablet 3 Tab PO HS Methylphenidate Er (Methylphenidate Hcl) 40 Mg Cpmp.50.50 40 Mg PO DAILY Furosemide 20 Mg Tablet 1 Tab PO DAILY Omeprazole 20 Mg Capsule.dr 1 Cap PO DAILY Allergies Allergies: Coded Allergies: lamotrigine (Verified Allergy, Severe, 07/21/16) cefaclor (Verified Allergy, Intermediate, hives, 07/21/16) Vitals VITALS Vital Signs Date Time Temp Pulse Resp B/P (MAP) Pulse Ox O2 Delivery O2 Flow Rate FiO2 07/22/16 08:00 Room Air 07/22/16 07:06 85 19 156/74 (101) 07/22/16 07:05 96 07/22/16 07:00 97.9 97.9 Labs Labs Laboratory Tests Test 07/21/16 12:24 07/21/16 13:20 07/21/16 20:45 07/22/16 03:00 White Blood Count 7.6 x10^3/uL (4.0-11.0) Red Blood Count 4.06 x10^6/uL (3.50-5.40) Hemoglobin 12.5 g/dL (12.0-15.5) Hematocrit 35.5 % (36.0-47.0) Mean Corpuscular Volume 88 fL (79-100) Mean Corpuscular Hemoglobin 31 pg (25-35) Mean Corpuscular Hemoglobin Concent 35 g/dL (31-37) Red Cell Distribution Width 13.9 % (11.5-14.5) Platelet Count 351 x10^3/uL (140-400) Neutrophils (%) (Auto) 69 % (31-73) Lymphocytes (%) (Auto) 21 % (24-48) Monocytes (%) (Auto) 8 % (0-9) Eosinophils (%) (Auto) 1 % (0-3) Basophils (%) (Auto) 1 % (0-3) Neutrophils # (Auto) 5.2 x10^3uL (1.8-7.7) Lymphocytes # (Auto) 1.6 x10^3/uL (1.0-4.8) Monocytes # (Auto) 0.6 x10^3/uL (0.0-1.1) Eosinophils # (Auto) 0.1 x10^3/uL (0.0-0.7) Basophils # (Auto) 0.1 x10^3/uL (0.0-0.2) D-Dimer (Pat) 1.80 ug/mlFEU (0.00-0.50) Sodium Level 141 mmol/L (136-145) Potassium Level 3.4 mmol/L (3.5-5.1) Chloride Level 106 mmol/L (98-107) Carbon Dioxide Level 29 mmol/L (21-32) Anion Gap 6 (6-14) Blood Urea Nitrogen 12 mg/dL (7-20) Creatinine 0.7 mg/dL (0.6-1.0) Estimated GFR (Cockcroft-Gault) 83.2 BUN/Creatinine Ratio 17 (6-20) Glucose Level 127 mg/dL (70-99) Calcium Level 8.3 mg/dL (8.5-10.1) Magnesium Level 2.0 mg/dL (1.8-2.4) Total Bilirubin 0.4 mg/dL (0.2-1.0) Aspartate Amino Transf (AST/SGOT) 20 U/L (15-37) Alanine Aminotransferase (ALT/SGPT) 18 U/L (14-59) Alkaline Phosphatase 55 U/L (46-116) Creatine Kinase 63 U/L (26-192) Creatine Kinase MB (Mass) < 0.5 ng/mL (0.0-3.6) Creatine Kinase MB Relative Index % (0-4) Troponin I Quantitative < 0.017 ng/mL (0.000-0.055) < 0.017 ng/mL (0.000-0.055) < 0.017 ng/mL (0.000-0.055) JV-Oii-Z-Type Natriuretic Peptide 104 pg/mL (0-124) Total Protein 5.9 g/dL (6.4-8.2) Albumin 2.8 g/dL (3.4-5.0) Albumin/Globulin Ratio 0.9 (1.0-1.7) Lipase 71 U/L (73-393) Thyroid Stimulating Hormone (TSH) 1.813 uIU/mL (0.358-3.74) Urine Collection Type Unknown Urine Color Yellow Urine Clarity Clear Urine pH 7.0 Urine Specific [place] <=1.005 Urine Protein Negative mg/dL (NEG-TRACE) Urine Glucose (UA) Negative mg/dL (NEG) Urine Ketones (Stick) Negative mg/dL (NEG) Urine Blood Negative (NEG) Urine Nitrite Negative (NEG) Urine Bilirubin Negative (NEG) Urine Urobilinogen Dipstick 1.0 mg/dL (0.2 mg/dL) Urine Leukocyte Esterase Negative (NEG) Urine RBC 0 /HPF (0-2) Urine WBC 0 /HPF (0-4) Urine Bacteria 0 /HPF (0-FEW) Urine Hyaline Casts Moderate /HPF Urine Mucus Slight /LPF Triglycerides Level 72 mg/dL (0-150) Cholesterol Level 158 mg/dL (0-200) LDL Cholesterol, Calculated 97 mg/dL (0-100) VLDL Cholesterol, Calculated 14 mg/dL (0-40) Non-HDL Cholesterol Calculated 111 mg/dL (0-129) HDL Cholesterol 47 mg/dL (40-60) Cholesterol/HDL Ratio 3.4 Laboratory Tests Test 07/21/16 13:20 07/21/16 20:45 07/22/16 03:00 Urine Collection Type Unknown Urine Color Yellow Urine Clarity Clear Urine pH 7.0 Urine Specific [place] <=1.005 Urine Protein Negative mg/dL (NEG-TRACE) Urine Glucose (UA) Negative mg/dL (NEG) Urine Ketones (Stick) Negative mg/dL (NEG) Urine Blood Negative (NEG) Urine Nitrite Negative (NEG) Urine Bilirubin Negative (NEG) Urine Urobilinogen Dipstick 1.0 mg/dL (0.2 mg/dL) Urine Leukocyte Esterase Negative (NEG) Urine RBC 0 /HPF (0-2) Urine WBC 0 /HPF (0-4) Urine Bacteria 0 /HPF (0-FEW) Urine Hyaline Casts Moderate /HPF Urine Mucus Slight /LPF Troponin I Quantitative < 0.017 ng/mL (0.000-0.055) < 0.017 ng/mL (0.000-0.055) Triglycerides Level 72 mg/dL (0-150) Cholesterol Level 158 mg/dL (0-200) LDL Cholesterol, Calculated 97 mg/dL (0-100) VLDL Cholesterol, Calculated 14 mg/dL (0-40) Non-HDL Cholesterol Calculated 111 mg/dL (0-129) HDL Cholesterol 47 mg/dL (40-60) Cholesterol/HDL Ratio 3.4 Assessment/Plan Assessment/Plan Patient is a 66-year-old woman who follows with Dr. Krishna Solis following a hemorrhagic stroke in 2000. She largely recovered her neurologic deficits. She' s had recurrent episodes of vasovagal syncope. The spell she had prompting this admission was typical for this type of entity. She did not fully pass out because she lied flat. I would suggest transition from venlafaxine to Prozac as Prozac may have better properties to prevent vasovagal syncope. This is likely occurring because of her irritable bowel syndrome causing abdominal pain. Better control over the syndrome may reduce her spells. I do not feel further neurologic investigation is needed. I do not find that pacemakers necessarily prevent the spells. SORIN PERKINS MD July 22, 2016 12:29
[2016-07-22] MEDS ORDERED: VENLAFAXINE XR 37.5 MG CAP.ER.24H. PO SCH (21:00)
--- NOTE | 2016-07-22 21:52 | CONS ---
DATE OF CONSULTATION: 07/22/2016 REFERRING PHYSICIAN: Dr. Deacon Contreras. REASON FOR CONSULTATION: Syncope. HISTORY OF PRESENT ILLNESS: The patient is a pleasant 66-year-old woman admitted yesterday through the Emergency Room at [facility]. 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 She was in the restroom, was having abdominal cramping, developed sweating and then tingling of her hands. These spells have occurred throughout the years and not infrequently. She wants to usually lie down to prevent passing out. Yesterday, she did so and did not pass out, that every time she tried to get out she would feel dizzy. Eventually paramedics were summoned and she was taken to the Emergency Room. She has had a number of these spells over the year, usually associated with abdominal distress. She notes that when the paramedics were transporting her to [facility], her blood pressure was 70/40. Typically with the spell she has a cold sweat, nausea and diarrhea. She has been followed by a neurologist, Dr. Krishna Solis, who has noted over the years that she has these vasovagal spells. They have been previously investigated and diagnosed. 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 Occasionally, she will have some tingling in her right foot and some difficulty with balance, but otherwise is back to normal. PAST MEDICAL HISTORY: 1. Vasovagal syncopal episodes. 2. Hemorrhagic stroke 2000. ALLERGIES: CEFACLOR AND LAMOTRIGINE. MEDICATIONS PRIOR TO ADMISSION: Furosemide 20 mg, methylphenidate extended release 40 mg, nortriptyline, the medication list state 75 mg, but she states she is on a 150 mg at night; omeprazole 20 mg, simvastatin 40 mg, and venlafaxine 37.5 mg extended release tablets, three at night. FAMILY HISTORY: Pertinent for hypertension. SOCIAL HISTORY: She is . She has a stepchild, grandchildren and great grandchildren. She is a lifelong nonsmoker. She does not drink alcohol or use recreational drugs. 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 REVIEW OF SYSTEMS: Her weight has been stable. She has had no rash or fever. She has not had any change in vision or hearing. She has no sinus trouble. She has been able to swallow without choking. She has not had shortness of breath or chest pain. She does periodically have abdominal pain associated with diarrhea. She has irritable bowel syndrome. She does not have any genitourinary complaints. She does have some numbness of the right foot at times. She does not complain of any weakness. Her balance is slightly off. She denies any psychiatric symptoms. She does not have any endocrine complaints. She does have swelling of feet and ankles. She does not complain of easy bruising or bleeding. PHYSICAL EXAMINATION: VITAL SIGNS: The blood pressure was 156/74, pulse 85, respirations 19, temperature 97.9 degrees Fahrenheit. Oximetry was 96% on room air. GENERAL: She was alert, awake and cooperative. Speech was fluent and clear. She had a good fund of recent and remote knowledge. Attention and concentration was intact. She was well groomed and well nourished. She was fully oriented. NEUROLOGIC: Examination of the cranial nerves revealed visual nath were full to confrontation. Extraocular movements were intact. The eyes were conjugate. Pursuit movements were smooth and saccadic eye movements were without dysmetria. Pupils were 3 mm and reactive. Funduscopic examination did not reveal papilledema, exudate or hemorrhage. Facial sensation was intact. The muscles of mastication and facial expression were powerful symmetrically. Hearing was intact to finger rub. The palate arched symmetrically, tongue was midline with full range of motion. Sternocleidomastoid and trapezius were powerful. Muscle bulk and tone was normal. There was no arm drift or abnormal movement. The power was full and symmetric in the upper and lower extremities. Reflexes were 2/4 and symmetric in the upper and lower extremities, but diminished at the ankles bilaterally, trace. The toes were downgoing bilaterally. Coordination testing with [id number], [id number], fine motor and rapid alternating movements was well performed. The sensory examination was intact to pain, light touch, proprioception, graphesthesia, cold thermal and vibration. There was no extinction to double simultaneous stimulation. Gait was normal base and steady. She could heel and toe walk. The Romberg stance was negative. Auscultation of the carotid arteries did not reveal a bruit. Heart rhythm was regular without a murmur. Peripheral pulses were 2/4 and symmetric in upper and lower extremities. There was some edema in the feet and ankles. There was no bleeding or rash. LABORATORY DATA: CBC revealed a normal white blood cell count. Hemoglobin was normal at 12.5, hematocrit low at 35.5 and platelet count was normal. Chemistries revealed potassium at 3.4, but other electrolytes were normal. Glucose was elevated at 127, calcium low at 8.3. Magnesium was normal. Liver enzymes were not elevated. CPK was not elevated nor was troponin. Albumin was low at 2.8 and total protein at 5.9. Lipase was not elevated. Lipid profile revealed total cholesterol of 158, triglycerides were 72, HDL was 47, LDL 97, and VLDL 14. TSH was normal. She underwent a CT scan of her head which revealed no acute process. There was the region of the left upper parietal lobe related to her previous hemorrhagic stroke. IMPRESSION: The patient is a 66-year-old woman who suffered hemorrhagic stroke in 2000 and has recovered very nicely. She has had recurrent episodes of vasovagal syncope over the years. She has irritable bowel syndrome and this seems to be playing a role ____ the spell with abdominal cramping. Her neurologic exam was otherwise normal. There was minor sensory changes in the right foot, but these were minimal changes. RECOMMENDATIONS: She can follow up with her usual neurologist as an outpatient. I would consider transitioning the venlafaxine to Prozac, as Prozac being an SSRI can have properties that help prevent vasovagal syncope. She had tried tapering the nortriptyline, but this was followed by insomnia and increasing headaches, which were the reason she was placed on the medication. I appreciate being involved in her care. Further neurologic investigation is not required. SORIN PERKINS MD DR: GHASSAN/derrell JOB#: [id number] / [id number] jane Mena, DEACON CONTRERAS,
--- NOTE | 2016-07-25 22:52 | DS ---
DATE OF DISCHARGE: 07/22/2016 CHIEF COMPLAINT: Syncope. HOSPITAL COURSE: The patient is a 66-year-old woman who presented after a syncopal episode. She was admitted, placed on tele and ruled out for ACS. No arrhythmias were noted. Orthostatic vital signs were benign. Echocardiogram was also within normal limits. Dr. Garvey from Cardiology had seen her. 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 In discussion between Cardiology and Neurology, the possibility of pacemaker was raised. This, however, will be addressed on an outpatient basis. It may not necessarily actually prevent her syncopes. All other medical issues remained stable and the patient was discharged once cleared by both services. PHYSICAL EXAMINATION: Please refer to note from same day. DISCHARGE DATE: 07/22/2016. DISCHARGE DIAGNOSIS: Syncope, neurogenic. DISCHARGE DISPOSITION: To home. DISCHARGE CONDITION: Improved. DISCHARGE MEDICATIONS: Please refer to MAR. DISCHARGE INSTRUCTIONS: The patient will follow up with her PCP in 1 week. MASOOD REILLY MD DR: UR/nts JOB#: [id number] / [id number] NUHA Montemayor
== END 2016-07-22 13:15 | disposition home or self-care (01) | DRG 312 ==
LOC: ER 13:16 → 2 NORTH 14:10
PROVIDERS: ADMIT Internal Medicine; ATTEND Internal Medicine
DX: R55 Syncope and collapse (principal); I69.351 Hemiplegia and hemiparesis following cerebral infarction affecting right dominant side; E78.00 Pure hypercholesterolemia, unspecified; E78.5 Hyperlipidemia, unspecified; F32.9 Major depressive disorder, single episode, unspecified; F41.9 Anxiety disorder, unspecified; F90.9 Attention-deficit hyperactivity disorder, unspecified type; M19.90 Unspecified osteoarthritis, unspecified site; G62.9 Polyneuropathy, unspecified; I10 Essential (primary) hypertension; I87.2 Venous insufficiency (chronic) (peripheral); K58.0 Irritable bowel syndrome with diarrhea; Z82.49 Family history of ischemic heart disease and other diseases of the circulatory system; Z90.81 Acquired absence of spleen; Z90.49 Acquired absence of other specified parts of digestive tract; Z90.710 Acquired absence of both cervix and uterus; Z79.899 Other long term (current) drug therapy; Z88.8 Allergy status to other drugs, medicaments and biological substances
CPT/HCPCS: 36415; 70450; 71010; 71275; 80053; 80061; 81001; 82553; 83690; 83735; 83880; 84443; 84484; 85027; 85379; 93005; 93306; 93970; 96361; 96374; J2405; J7030; 99285-25